=== PATIENT | male | born 1980 | race Hispanic/Latino ===

== ENCOUNTER 2016-03-30 17:36 | Emergency (ER) | payer MEDICAID ==
--- NOTE | 2016-03-30 19:29 | Emergency Department Report ---
Chief Complaint: Psych Stated Complaint: MENTAL EVAL Time Seen by Provider: 03/30/16 19:11 - HPI History of Present Illness: Patient here to verbalize that he needs help. He said he is homeless and has not eaten in the day. Patient also reports that she would like to have his Seroquel refill because he has bipolar disorder. He denies suicidal or homicidal ideation. He denies hallucination. - ROS Review of Systems: All systems are negative unless stated in HPI above. - Exam Vital Signs: Vital Signs 03/30/16 17:37 Temperature 98.2 F Pulse Rate 82 Blood Pressure 136/78 O2 Sat by Pulse 99 Oximetry Physical Exam: General: This is a 35-year-old frail-looking male in no acute distress. CV: S1, S2. Regular rate and rhythm. Lungs: Clear to auscultate bilaterally, no rhonchi wheezes or rales. Psych: No suicidal or homicidal ideation. No hallucination. MSE screening note: Focused history and physical exam performed. Due to findings the following was ordered:see [facility] ED Medical Decision Making - Medical Decision Making Medical decision making: Patient seen by provider in triage area. Appropriate protocol activated and patient to main ED to be seen by physician. ED Disposition for MSE Condition: Stable
[2016-03-31 00:56] VITALS: BP 128/74
--- NOTE | 2016-03-31 01:09 | Emergency Department Report ---
ED Psych HPI - General Chief Complaint: Psych Stated Complaint: MENTAL EVAL Time Seen by Provider: 03/30/16 19:11 Source: patient Mode of arrival: Ambulatory Limitations: No Limitations - History of Present Illness Initial Comments: 35-year-old male with past medical history of bipolar disorder presents to the hospital complaining of homelessness and not eating all day. Patient denies suicidal or homicidal ideation. Denies hallucinations. Patient also requesting a refill his Seroquel 200 mg daily at bedtime. Patient does not know how long he's been off the medication. It is currently up a winter advisory with below freezing temperatures outside. Physical complaints reported. Patient tolerated a history of flu prior to my evaluation. - Related Data Previous Rx's Medication Instructions Recorded Last Taken Type QUEtiapine [SEROquel] 200 mg PO QHS #30 tablet 03/31/16 Unknown Rx Allergies Allergy/AdvReac Type Severity Reaction Status Date / Time No Known Allergies Allergy Verified 03/31/16 01:21 ED Review of Systems ROS: Stated complaint: MENTAL EVAL Other details as noted in HPI Comment: All other systems reviewed and negative Other: Constitutional: No fevers chills Eyes: No eye pain visual changes ENT: No ear pain or throat pain Neck: Denies pain Respiratory: Denies cough wheezing shortness of breath Cardiovascular: Denies chest pain, palpitations, syncope GI: Denies abdominal pain, nausea, vomiting, diarrhea : Denies dysuria Musculoskeletal: Denies back pain Skin: Denies rash, lesions, erythema Neurologic: Denies headache, numbness, weakness Psychiatric: Denies suicidal ideation, hallucinations ED Past Medical Hx - Past Medical History Previous Medical History?: Yes Hx Psychiatric Treatment: Yes - Surgical History Past Surgical History?: No - Social History Smoking Status: Current Every Day Smoker Substance Use Type: Alcohol - Medications Home Medications: Home Medications Medication Instructions Recorded Confirmed Last Taken Type QUEtiapine [SEROquel] 200 mg PO QHS #30 tablet 03/31/16 Unknown Rx ED Physical Exam - General Limitations: No Limitations - Other Other exam information: General: No limitations, patient is alert in no acute distress Head exam: Atraumatic, normocephalic Eyes exam: Normal appearance, pupils equal reactive to light, extraocular movements intact ENT: Moist mucous membrane, normal oropharynx Neck exam: Normal inspection, full range of motion, no meningismus nontender Respiratory exam: Clear to auscultation bilateral, no wheezes, rales, crackles Cardiovascular: Normal rate and rhythm, normal heart sounds Abdomen: Soft, nondistended, and nontender, with normal bowel sounds, no rebound, or guarding Extremity: Full range of motion normal inspection no deformity Back: Normal Inspection, full range of motion, no tenderness Neurologic: Alert, oriented x3, cranial nerves intact, no motor or sensory deficit Psychiatric: normal affect, normal mood Skin: Warm, dry, intact ED Course Vital Signs 03/30/16 03/31/16 03/31/16 17:37 00:55 00:56 Temperature 98.2 F 97.8 F Pulse Rate 82 73 Respiratory 18 18 Rate Blood Pressure 136/78 Blood Pressure 128/74 [Right] O2 Sat by Pulse 99 99 99 Oximetry - Reevaluation(s) Reevaluation #1: 03/31/16 01:08 Seroquel 50 mg ordered since patient will need to be re-acclimated to his 200 mg Seroquel dose ED Medical Decision Making - Medical Decision Making At this patient denies suicidal or homicidal ideation requiring 1013. He will have his Seroquel restarted as requested. Retirement information will be provided prior to discharge - Differential Diagnosis homelessness, bipolar, hunger Critical Care Time: No Critical care attestation.: If time is entered above; I have spent that time in minutes in the direct care of this critically ill patient, excluding procedure time. ED Disposition Clinical Impression: Homelessness, Encounter for medication refill Bipolar disorder Qualifiers: Active/Remission status: remission status unspecified Qualified Code(s): F31.9 - Bipolar disorder, unspecified Disposition: DISCHARGED TO HOME OR SELFCARE Is pt being admited?: No Does the pt Need Aspirin: No Condition: Stable Instructions: Bipolar Disorder (ED) Additional Instructions: Take medication as prescribed. Return if symptoms worsen. Follow up with [facility] as needed for medication refill and assessment Prescriptions: QUEtiapine [SEROquel] 200 mg PO QHS #30 tablet Referrals: [facility] [Outside] - 3-5 Days Time of Disposition: 05:34
== END 2016-03-31 06:56 | disposition home or self-care (01) ==
LOC: ED 17:36 → EEVIPCON 17:36 → ED 03-31 06:56
DX: F31.9 Bipolar disorder, unspecified (principal); Z59.0 Homelessness; F17.200 Nicotine dependence, unspecified, uncomplicated
CPT/HCPCS: 99283